=== PATIENT | female | born 1995 ===

== ENCOUNTER 2017-12-02 14:20 | Emergency (ER) | payer BC ==
[2017-12-02 15:08] VITALS: TEMP 98.4; BMI 23.7
[2017-12-02 17:02] VITALS: BP 124/72; PULSE 99; RESP 17; O2SAT 97
--- NOTE | 2017-12-02 17:11 | ED PDOC ---
Arrival/HPI - General Chief Complaint: Flu-like Symptoms Time Seen by Provider: 12/02/17 15:58 Historian: Patient - History of Present Illness Narrative History of Present Illness (Text): 12/02/17 17:10 22-year-old female presents presents today with one-day history of cough and nasal congestion and sore throat. Patient complaining of subjective fevers at home. Patient denies chest pain or shortness of breath. Denies dizziness or weakness. Patient denies sick contacts at home. No medications have been taken for pain or fever at home. Patient states she did not get her flu shot. Patient states the throat is burning pain with swallowing. no other complaints. Time/Duration: Other (1 day (last night)) Symptom Course: Worsening Past Medical History - Provider Review Nursing Documentation Reviewed: Yes - Travel History Have you recently traveled outside [place] w/in the past 3 mons?: No - Psychiatric Hx Substance Use: No Family/Social History - Physician Review Nursing Documentation Reviewed: Yes Family/Social History: Unknown Family HX Smoking Status: Never Smoked Hx Alcohol Use: Yes Frequency of alcohol use: Socially Hx Substance Use: No Allergies/Home Meds Allergies/Adverse Reactions: Allergies aspirin Allergy (Verified 12/02/17 15:08) RASH Review of Systems - Review of Systems Constitutional: Fevers. absent: Fatigue ENT: Sore Throat, Sinus Congestion Respiratory: Cough. absent: SOB Cardiovascular: absent: Chest Pain Gastrointestinal: absent: Abdominal Pain, Nausea, Vomiting Genitourinary Female: absent: Dysuria Musculoskeletal: absent: Arthralgias Skin: absent: Rash, Pruritis Neurological: absent: Headache Psychiatric: absent: Anxiety, Depression Physical Exam Vital Signs Reviewed: Yes Vital Signs Temp Pulse Resp BP Pulse Ox 12/02/17 17:01 99 H 17 124/72 97 12/02/17 15:03 98.4 F 114 H 20 119/69 96 Temperature: Afebrile Blood Pressure: Normal Pulse: Regular Respiratory Rate: Normal Appearance: Positive for: Well-Appearing, Non-Toxic, Comfortable Pain Distress: None Mental Status: Positive for: Alert and Oriented X 3 - Systems Exam Head: Present: Atraumatic Conjunctiva: Present: Normal Ears: Present: Normal, NORMAL TM Mouth: Present: Moist Mucous Membranes Pharnyx: Present: ERYTHEMA. No: Normal, EXUDATE, TONSILS ENLARGED, Peritonsilar Swelling, Uvular Deviation, Muffled/Hoarse Voice, Strider Nose (External): Present: Atraumatic Nose (Internal): Present: Normal Inspection Neck: Present: Normal Range of Motion, Trachea Midline. No: Lymphadenopathy Respiratory/Chest: Present: Clear to Auscultation, Good Air Exchange. No: Respiratory Distress, Accessory Muscle Use Cardiovascular: Present: Regular Rate and Rhythm, Normal S1, S2. No: Murmurs Abdomen: No: Tenderness Neurological: Present: GCS=15 Skin: Present: Warm, Dry, Normal Color. No: Rashes Psychiatric: Present: Alert, Oriented x 3 Medical Decision Making ED Course and Treatment: 12/02/17 17:14 Patient is nontoxic well-appearing in no distress. pt tachycardic. tylenol Po rapid flu; negative pt reassessment; vitals improved; pt feeling much better. will start patient on zithromax for pharyngitis and cough. Zithromax I advised follow up with primary care physician within the next 2 days. I advised increase fluids and return if symptoms worsen persist or if new symptoms develop. Patient verbalizes understanding of discharge instructions and need for immediate followup. all aspects of this case were discussed the attending of record. IMPRESSION; pharyngitis, cough tylenol every 4 hours as needed for pain Zithromax one tablet once daily x4 days Increase fluids Followup with primary care physician the next 2 days Return if symptoms worsen persist or if new symptoms develop - Lab Interpretations Lab Results: Lab Results 12/02/17 16:07: Influenza Typ A,B (EIA) Negative for flu a/b - Medication Orders Current Medication Orders: Discontinued Medications Acetaminophen (Tylenol 325mg Tab) 975 mg PO STAT STA Stop: 12/02/17 15:59 Last Admin: 12/02/17 16:07 Dose: 975 mg MAR Pain/Vitals Document 12/02/17 16:07 SE (Rec: 12/02/17 16:07 SE [facility] [id number]) Pain Reassessment Is This A Pain ReAssessment? No Sleep Is patient sleeping during reassessment? No Presence of Pain Presence of Pain Yes Pain Scale Used Pain Scale Used Numeric Disposition/Present on Arrival - Present on Arrival Any Indicators Present on Arrival: No History of DVT/PE: No History of Uncontrolled Diabetes: No Urinary Catheter: No History of Decub. Ulcer: No History Surgical Site Infection Following: None - Disposition Have Diagnosis and Disposition been Completed?: Yes Diagnosis: Pharyngitis, Cough Disposition: HOME/ ROUTINE Disposition Time: 17:09 Patient Plan: Discharge Condition: GOOD Discharge Instructions (ExitCare): Pharyngitis (ED), Acute Cough (ED) Additional Instructions: tylenol every 4 hours as needed for pain Zithromax one tablet once daily x4 days Increase fluids Followup with primary care physician the next 2 days Return if symptoms worsen persist or if new symptoms develop Prescriptions: Azithromycin [Zithromax] 250 mg PO DAILY #4 tab Referrals: PCP,NO [Primary Care Provider] - Follow up with primary Speedy Bird DO [Staff Provider] - Follow up with primary Forms: [facility] ([facility]), WORK NOTE
== END 2017-12-02 17:27 | disposition home or self-care (01) ==
LOC: ED 14:20
DX: J02.9 Acute pharyngitis, unspecified (principal); R05 Cough